=== PATIENT | male | born 1980 | race African-American/Black ===

== ENCOUNTER 2016-09-22 15:48 | Emergency (ER) | payer MEDICARE ==
[~2016-09-22] VITALS: Ht 188 cm; Wt 87.0 kg
[~2016-09-22 15:48] MED LIST: ALPR0.2582 PO; BUSP30TA2 PO; DEXT5TAB15 PO; MIRT15TA PO; QUET50TA11 PO
[2016-09-22 16:06] VITALS: BP 126/81
[2016-09-26] MEDS ORDERED: IOHEXOL-300 100 ML BOTTLE ONE (10:23)
[2016-09-26] MEDS ORDERED: LIDOCAINE HCL 1% 20ML VIAL (Pyxis) INJ ONE ×2 (10:23→10:53)
[2016-09-26] MEDS ORDERED: MIDAZOLAM HCL 2 MG/2 ML VIAL ONE ×2 (10:23→10:38)
[2016-09-26] MEDS ORDERED: FENTANYL CITRATE/PF 50MCG/ML 2ML VIAL ONE (10:23)
[2016-09-26] MEDS ORDERED: HYDROMORPHONE HCL/PF 2MG/ML (OR) ONE (10:27)
== END 2016-09-22 19:12 | disposition home or self-care (01) ==
LOC: ER 18:37
DX: J02.9 Acute pharyngitis, unspecified (principal); F20.9 Schizophrenia, unspecified; F31.9 Bipolar disorder, unspecified; F41.9 Anxiety disorder, unspecified; F17.200 Nicotine dependence, unspecified, uncomplicated; Z79.899 Other long term (current) drug therapy
CPT/HCPCS: 99283